=== PATIENT | male | born 1930 | race Caucasian/White ===

== ENCOUNTER 2017-12-31 14:15 | Emergency (ER) | payer MEDICARE, BC ==
[~2017-12-31] VITALS: Ht 584.7 cm; Wt 64.9 kg
[2017-12-31 16:55] VITALS: BP 127/94
== END 2017-12-31 16:57 | disposition home or self-care (01) ==
LOC: ER 14:18
DX: S01.01XA Laceration without foreign body of scalp, initial encounter (principal); I10 Essential (primary) hypertension; I25.10 Atherosclerotic heart disease of native coronary artery without angina pectoris; W01.190A Fall on same level from slipping, tripping and stumbling with subsequent striking against furniture, initial encounter; Y93.89 Activity, other specified; Y92.89 Other specified places as the place of occurrence of the external cause; Y99.8 Other external cause status
CPT/HCPCS: 12001; 70450; 99284; A6449